=== PATIENT | female | born 1960 | race Caucasian/White ===

== ENCOUNTER → 2024-07-18 11:01 | Outpatient (BNVA) | payer OTHER, SELFPAY | PROVIDERS: PCP Family Medicine; Visit Provider Family Medicine | DX: Z00.00 Encounter for general adult medical examination without abnormal findings (principal) | CPT/HCPCS: 80053; 80061; 84443; 85025 ==

== ENCOUNTER 2024-12-02 14:25 | Emergency (ER) | payer OTHER, SELFPAY ==
[2024-12-02 14:32] VITALS: BP 138/80; PULSE 92; RESP 16; TEMP 36.4; O2SAT 100; BMI 24.6
--- NOTE | 2024-12-02 14:34 | W.ED.ABDPA2 ---
HPI - Abdominal Pain General: Chief Complaint: Abdominal Pain Stated Complaint: low lt abd pain Time Seen by Provider: 12/02/24 14:32 History of Present Illness: 64-year-old female who presents to the emergency room planing left lower quadrant abdominal pain. Patient is unable to find a comfortable position. She thought to been constipated recently she tried some enemas normal she denies any hematochezia melena hematemesis, cramps no dysuria urgency or frequency or hematuria no fever. No previous abdominal surgeries. Associated Symptoms: Reports nausea; Denies chills, dysuria, fever(s) and vomiting Related Data Home Medications ?Medication ?Instructions ?Recorded ?Confirmed acetaminophen 500 mg tablet 1,000 mg PO Q6H PRN Fever Or Pain 12/02/24 12/02/24 (Tylenol Extra Strength) docusate sodium 100 mg capsule 100 mg PO BID 12/02/24 12/02/24 omeprazole 20 mg capsule,delayed 20 mg PO DAILY PRN Stomach Upset 12/02/24 12/02/24 release psyllium husk 0.4 gram capsule 0.4 g PO DAILY PRN Constipation 12/02/24 12/02/24 (Metamucil) Previous Rx's ?Medication ?Instructions ?Recorded hydrocodone 7.5 mg-acetaminophen 1 tab PO Q6H PRN pain #20 tabs 12/02/24 325 mg tablet promethazine 25 mg tablet 25 mg PO Q6H PRN nausea and 12/02/24 vomiting #20 tabs tamsulosin 0.4 mg capsule 0.4 mg PO DAILY #30 caps 12/02/24 Allergies Allergy/AdvReac Type Severity Reaction Status Date / Time erythromycin base Allergy stomach Verified 12/02/24 14:36 cramps and issues Penicillins Allergy rash Verified 12/02/24 14:36 pineapple Allergy lips Verified 12/02/24 14:36 blister Review of Systems Const: Denies: fever(s) or chills Card: Denies: chest pain Resp: Denies: dyspnea GI: Reports: nausea; Denies: abdominal pain or vomiting : Denies: dysuria, urinary frequency or urinary urgency Musc: Denies: neck pain or back pain Skin/Breast: Denies: rash PFSH ED PFSH: Surgical History History of endometrial ablation Hx of breast lump removal R fibroadenoma Family History Mother Hypertension Father Lung cancer Brother Prostate cancer Atrial fibrillation 2 brothers with a fib Social History Smoking and tobacco/nicotine status: never used tobacco/nicotine Alcohol intake: never Substance/Drug Use: never Household members: spouse Marital status: Number of children: 2 Highest education level completed: Associate Degree: Occupational, Technical, Vocational Program Education level details: [employer] Current occupational status: retired 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 Physical Exam Const: GENERAL APPEARANCE: cooperative ORIENTATION/CONSCIOUSNESS: Yes awake, Yes oriented to person, Yes oriented to place and Yes oriented to time HENMT: COMMON NORMALS: normocephalic, atraumatic and hearing grossly normal bilaterally HEAD & SCALP: normocephalic and atraumatic Resp: COMMON NORMALS: normal respiratory effort, No retractions, No use of accessory muscles and clear to auscultation bilaterally AUSCULTATION: clear to auscultation bilaterally Cardio: COMMON NORMALS: regular rate, regular rhythm and No murmurs present (Cardio) RATE: regular rate RHYTHM: regular rhythm GI: COMMON NORMALS: Soft to palpation and No hepatosplenomegaly present AUSCULTATION: Yes normoactive bowel sounds PALPATION: Yes Soft to palpation, No Tenderness to palpation present (GI), No Guarding due to palpation present (GI) and Yes No hepatosplenomegaly present Extremity: COMMON NORMALS: normal to inspection, capillary refill normal, no clubbing, cyanosis or edema, no calf tenderness and no pedal edema Neuro: SENSORIUM/ORIENTATION: Yes oriented to person, Yes oriented to place and Yes oriented to time Skin: COMMON NORMALS: no rashes or lesions noted GENERAL SKIN EXAM: no rashes or lesions noted Course Vital Signs: Vital signs: Vital Signs Temperature 97.6 F 12/02/24 14:32 Pulse Rate 92 12/02/24 14:32 Respiratory Rate 18 12/02/24 16:41 Blood Pressure 138/80 12/02/24 14:32 Pulse Oximetry 97 12/02/24 16:41 MDM - Abdominal Pain Medical Decision Making CT shows 5 mm left ureteral stone in his distal moderate hydronephrosis. No signs of infection pain is controlled. Will discharge patient home with hydrocodone tamsulosin 1 promethazine as needed strain urine and referral to urology clinic Medical Records I reviewed the patient's medical records. Lab Data I reviewed the patient's lab results. 12/02/24 14:45 12/02/24 14:45 Labs/Radiology: Radiology Impressions Abdomen/Pelvis CT 12/02/24 14:46 IMPRESSION: 1. 5 mm distal left ureteral stone with moderate hydronephrosis 2. Hiatal hernia 3. A benign renal cyst or cysts have been detected. No further follow-up imaging is required. COMMENTS: Consistent with the [employer]'s Incidental Findings Committee white paper (J Am Deirdre Radiol 2018): Any incidental renal lesion less than 1 cm or classified as too small to characterize, or any incidental cystic renal lesion characterized as simple-appearing, is likely benign. No follow-up imaging is recommended for these lesions per consensus recommendations based on imaging criteria. Laboratory Results WBC 13.16 10^3/uL (3.29-11.43) H 12/02/24 14:45 RBC 4.64 10^6/uL (3.85-5.65) 12/02/24 14:45 Hgb 14.00 g/dL (11.27-16.99) 12/02/24 14:45 Hct 41.4 % (36-47) 12/02/24 14:45 MCV 89.2 fl (85-98) 12/02/24 14:45 MCH 30.2 pg (27-33) 12/02/24 14:45 MCHC 33.8 g/dL (30-55) 12/02/24 14:45 RDW 12.7 % (12.1-15.1) 12/02/24 14:45 Plt Count 287 10^3/cmm (157-399) 12/02/24 14:45 MPV 8.5 fL (7.4-10.4) 12/02/24 14:45 Neut % (Auto) 87.0 % 12/02/24 14:45 Lymph % (Auto) 7.2 % 12/02/24 14:45 Bennett % (Auto) 5.0 % 12/02/24 14:45 Eos % (Auto) 0.4 % 12/02/24 14:45 Baso % (Auto) 0.2 % 12/02/24 14:45 Neut # (Auto) 11.45 10^3/uL (1.8-7.7) H 12/02/24 14:45 Lymph # (Auto) 1.0 10^3/uL (0.8-4.8) 12/02/24 14:45 Bennett # (Auto) 0.7 10^3/uL (0.2-0.9) 12/02/24 14:45 Eos # (Auto) 0.1 10^3/uL (0.0-0.8) 12/02/24 14:45 Baso # (Auto) 0.0 10^3/uL (0.0-0.1) 12/02/24 14:45 Nucleated RBC % (auto) 0 % 12/02/24 14:45 Nucleated RBCs # 0.0 /100WBC 12/02/24 14:45 Sodium 140 mmol/L (136-145) 12/02/24 14:45 Potassium 3.9 mmol/L (3.5-5.1) 12/02/24 14:45 Chloride 104 mmol/L (98-107) 12/02/24 14:45 Carbon Dioxide 21 mmol/L (22-29) L 12/02/24 14:45 Anion Gap 18.9 (5-19) 12/02/24 14:45 BUN 13 mg/dL (8-23) 12/02/24 14:45 Creatinine 0.8 mg/dL (0.5-0.9) 12/02/24 14:45 GFR Calculation 72.2 mL/min (90-130) L 12/02/24 14:45 Glucose 132 mg/dL (65-115) H 12/02/24 14:45 Calculated Osmolality 292 mOsm/kg (285-295) 12/02/24 14:45 Calcium 9.3 mg/dL (8.5-10.5) 12/02/24 14:45 Total Bilirubin 0.5 mg/dL (0.15-1.2) 12/02/24 14:45 AST 18 U/L (0-32) 12/02/24 14:45 ALT 12 U/L (0-33) 12/02/24 14:45 Alkaline Phosphatase 95 U/L (35-105) 12/02/24 14:45 Total Protein 7.2 g/dL (6.6-8.7) 12/02/24 14:45 Albumin 4.4 g/dL (3.5-5.2) 12/02/24 14:45 Globulin 2.8 g/dL (1.3-4.6) 12/02/24 14:45 Lipase 30 U/L (13-60) 12/02/24 14:45 Urine Color Yellow (Yellow) 12/02/24 14:55 Urine Appearance Clear (CLEAR) 12/02/24 14:55 Urine pH 6.0 (5-7) 12/02/24 14:55 Ur Specific [place] 1.018 (1.005-1.030) 12/02/24 14:55 Urine Protein Trace (Negative) A 12/02/24 14:55 Urine Glucose (UA) Negative (Normal) 12/02/24 14:55 Urine Ketones 2+ (Negative) H 12/02/24 14:55 Urine Blood 2+ (Negative) A 12/02/24 14:55 Urine Nitrate Negative (Negative) 12/02/24 14:55 Urine Bilirubin Negative (Negative) 12/02/24 14:55 Urine Urobilinogen 1.0 mg/dL (Negative) 12/02/24 14:55 Ur Leukocyte Esterase 1+ (Negative) A 12/02/24 14:55 Urine RBC 51-100 /hpf (0-2) H 12/02/24 14:55 Urine WBC 0-5 /hpf (0-5) 12/02/24 14:55 Ur Squamous Epith Cells 0-5 /hpf (0-5) 12/02/24 14:55 Amorphous Sediment Not Reportable 12/02/24 14:55 Urine Bacteria None seen /hpf (NONE) 12/02/24 14:55 Hyaline Casts 5.36 /lpf 12/02/24 14:55 All radiology interpretation(s) finalized by discharge Discharge Plan Discharge Patient Disposition: Home Clinical Impression: Calculus of kidney Condition: Stable Prescriptions: New promethazine 25 mg tablet 25 mg PO Q6H PRN (Reason: nausea and vomiting) Qty: 20 0RF tamsulosin 0.4 mg capsule 0.4 mg PO DAILY Qty: 30 0RF hydrocodone-acetaminophen 7.5-325 mg tablet 1 tab PO Q6H PRN (Reason: pain) Qty: 20 0RF No Action acetaminophen [Tylenol Extra Strength] 500 mg Tablet 1,000 mg PO Q6H PRN (Reason: Fever Or Pain) docusate sodium [Doculax] 100 mg Capsule 100 mg PO BID omeprazole 20 mg Capsule,Delayed Release(Dr/Ec) 20 mg PO DAILY PRN (Reason: Stomach Upset) psyllium husk [Metamucil] 0.4 gram Capsule 0.4 g PO DAILY PRN (Reason: Constipation) Discharge Orders: Discharge ED (Routine); Ordered 12/02/24 Ordered By: Azeem Dawson Referrals: Jerilyn Melissa MD [Primary Care Provider, Family Practice] Discharge Diet: Usual diet Discharge Activity: Resume usual activity Patient Instructions: Kidney Stones (ED), How to Strain Your Urine (ED), Opioid Safety, Pain Management, Patient Portal & [place] Instructions Activity Restrictions/Additional Instructions: Thank you for choosing [facility] for your healthcare needs today. It is very important that you follow up as instructed or that you return to the Emergency Department should you have concerns or if your condition changes or worsens in any way. You were seen emergency room with complaints of left flank pain. CT scan shows that you have a left 5 mm kidney stone that is in the ureter on the way to the bladder. Recommend that you strain your urine. You are given tamsulosin: This helps pass the stone a little quicker. You are also given hydrocodone and promethazine to use as needed. Follow-up with urology nightclub manager will make arrangements for follow-up. Print Language: British Coding Level of Care Code ED Invisible Braces Orthodontist for Sid Saldana
--- NOTE | 2024-12-02 14:46 | CTR_ITS ---
PROCEDURE INFORMATION: Exam: CT Abdomen And Pelvis Without Contrast Exam date and time: 12/02/2024 3:02 PM Age: 64 years old Clinical indication: Abdominal pain; Flank; Left; Additional info: Flank pain TECHNIQUE: Imaging protocol: Computed tomography of the abdomen and pelvis without contrast. Radiation optimization: All CT scans at this facility use at least one of these dose optimization techniques: automated exposure control; mA and/or kV adjustment per patient size (includes targeted exams where dose is matched to clinical indication); or iterative reconstruction. COMPARISON: No relevant prior studies available. RADIATION DOSE METRICS: Total DLP (mGy-cm): 364.85 FINDINGS: Lungs: Lung bases are clear. No pleural effusion. Diaphragm: A hiatal hernia is noted in the lower mediastinum. Liver: Normal. No mass. Gallbladder and biliary ducts: Normal. No calcified stones. No ductal dilation. Pancreas: Normal. No ductal dilation. Spleen: Normal. No splenomegaly. Adrenal glands: Normal. No mass. Kidneys and ureters: There is a 5 mm stone lying in the distal portion of the left ureter. Moderate hydronephrosis is noted. Extravasated urine surrounds the left kidney. 1.5 cm exophytic cyst involves the right kidney. Stomach and bowel: Unremarkable. No obstruction. No mucosal thickening. Appendix: No evidence of appendicitis. Intraperitoneal space: Unremarkable. No free air. No significant fluid collection. Vasculature: Unremarkable. No abdominal aortic aneurysm. Lymph nodes: Unremarkable. No enlarged lymph nodes. Urinary bladder: Unremarkable as visualized. Reproductive: Unremarkable as visualized. Bones/joints: Unremarkable. No acute fracture. Soft tissues: Unremarkable. CT/CT kidney stone [id number] IMPRESSION: 1. 5 mm distal left ureteral stone with moderate hydronephrosis 2. Hiatal hernia 3. A benign renal cyst or cysts have been detected. No further follow-up imaging is required. COMMENTS: Consistent with the [place] [employer]'s Incidental Findings Committee white paper (J Am Deirdre Radiol 2018): Any incidental renal lesion less than 1 cm or classified as too small to characterize, or any incidental cystic renal lesion characterized as simple-appearing, is likely benign. No follow-up imaging is recommended for these lesions per consensus recommendations based on imaging criteria.
[2024-12-02 14:53] LABS: Hematocrit 41.4 % (36-47); Hemoglobin 14.00 g/dL (11.27-16.99); Mean Corpuscular HGB Conc 33.8 g/dL (30-55); Mean Corpuscular Hemoglobin 30.2 pg (27-33); Mean Corpuscular Volume 89.2 fl (85-98); Nucleated Red Blood Cells % 0 %; Platelet Count 287 10^3/cmm (157-399); Red Blood Count 4.64 10^6/uL (3.85-5.65); White Blood Count 13.16 10^3/uL (3.29-11.43)
[2024-12-02 15:01] VITALS: RESP 18; O2SAT 97
[2024-12-02] MEDS: ondansetron 2 mg/ML SDV 2 mL 4 MG IVP (15:01)
[2024-12-02] MEDS: morphine 4 mg/mL SDV 1 mL IVP ×2 (15:01→16:41)
[2024-12-02 15:07] LABS: Glucose Urine UA Negative (Normal); Nitrate Urine Negative (Negative); Specific Gravity, Urine 1.018 (1.005-1.030)
[2024-12-02 15:11] LABS: Add Urine Microscopic? YES
[2024-12-02 15:14] LABS: Alanine Aminotransferase 12 U/L (0-33); Albumin Level 4.4 g/dL (3.5-5.2); Alkaline Phosphatase 95 U/L (35-105); Anion Gap 18.9 (5-19); Aspartate Amino Transferase 18 U/L (0-32); Blood Urea Nitrogen 13 mg/dL (8-23); Calcium 9.3 mg/dL (8.5-10.5); Carbon Dioxide 21 mmol/L (22-29); Chloride 104 mmol/L (98-107); Creatinine Clr Calc Pharmacy 61.0459; Globulin 2.8 g/dL (1.3-4.6); Glucose 132 mg/dL (65-115); Lipase 30 U/L (13-60); Osmolality Calculated 292 mOsm/kg (285-295); Potassium 3.9 mmol/L (3.5-5.1); Sodium 140 mmol/L (136-145); Total Protein 7.2 g/dL (6.6-8.7)
[2024-12-02 16:41] VITALS: RESP 18; O2SAT 97
--- NOTE | 2024-12-04 08:52 | DCPLANNER ---
faxed referral packet and pushed images to [facility]
== END 2024-12-02 16:43 | disposition home or self-care (01) ==
PROVIDERS: Emergency Provider Family Medicine; PCP Family Medicine
DX: N20.0 Calculus of kidney (principal)
CPT/HCPCS: 36415; 74176; 80053; 81001; 83690; 85025; 87086; 96374; 96375; 96376; 99285; J1885; J2270; J2405

== ENCOUNTER 2025-01-19 11:10 | Outpatient (CLI) | payer OTHER, SELFPAY ==
--- NOTE | 2025-01-19 11:18 | XR_ITS ---
WS: [id number] XR KUB [id number] REASON FOR EXAM: f/u L UVP kidney stone on CT FINDINGS: No previous KUB. Calculus (5 to 6 mm) in the left pelvis which likely represents a distal left ureteral calculus which has transited somewhat further in the distal left ureter compared to the CT 12/02/2024. No other significant findings. XR/XR KUB [id number] IMPRESSION: Probable distal left ureteral calculus as above.
== END 2025-01-19 11:11 | disposition home or self-care (01) ==
PROVIDERS: PCP Family Medicine; Visit Provider Family Medicine
DX: N20.0 Calculus of kidney (principal)
CPT/HCPCS: 74018

== ENCOUNTER → 2025-02-27 14:52 | Outpatient (BNVA) | payer OTHER, SELFPAY | PROVIDERS: PCP Family Medicine; Visit Provider Family Medicine | DX: R30.0 Dysuria (principal) | CPT/HCPCS: 87086 ==